=== PATIENT | female | born 1990 | race African-American/Black ===

== ENCOUNTER 2017-10-17 23:03 | Emergency (ER) | payer MEDICAID ==
[2017-10-18] MEDS ORDERED: MORPHINE SULFATE 10 MG/ML INJ IV ONE ×2 (00:41→01:40)
--- NOTE | 2017-10-18 00:46 | ER Document Report ---
ED GI/ - General Chief Complaint: Urinary Frequency Stated Complaint: RIGHT FLANK PAIN Time Seen by Provider: 10/18/17 00:37 Notes: The patient is a 27-year-old female, past medical history cholecystectomy, presents with 2 days of right lower pelvic pain and mild dysuria. She says it is worse when she walks and is constantly there. She was having right flank pain yesterday, but the pain is now lower in her abdomen. She also had subjective fevers at home and took Tylenol just prior to arrival. She denies nausea, vomiting, vaginal discharge, vaginal bleeding, hematuria, fevers, diarrhea or constipation. TRAVEL OUTSIDE OF THE [place] IN LAST 30 DAYS: No - Related Data Allergies/Adverse Reactions: sulfamethoxazole [From Bactrim] Adverse Reaction (Verified 10/17/17 23:05) trimethoprim [From Bactrim] Adverse Reaction (Verified 10/17/17 23:05) Past Medical History - General Information source: Patient - Social History Smoking Status: Unknown if Ever Smoked Family History: Reviewed & Not Pertinent Review of Systems - Review of Systems Notes: REVIEW OF SYSTEMS: CONSTITUTIONAL: +fevers, -chills EENT: -eye pain, -difficulty swallowing, -nasal congestion CARDIOVASCULAR: -chest pain, -syncope. RESPIRATORY: -cough, -SOB GASTROINTESTINAL: +RLQ abdominal pain, -nausea, -vomiting, -diarrhea GENITOURINARY: +dysuria, +hematuria MUSCULOSKELETAL: +right flank pain, -neck pain SKIN: -rash or skin lesions. HEMATOLOGIC: -easy bruising or bleeding. LYMPHATIC: -swollen, enlarged glands. NEUROLOGICAL: -altered mental status or loss of consciousness, -headache, - neurologic symptoms PSYCHIATRIC: -anxiety, -depression. ALL OTHER SYSTEMS REVIEWED AND NEGATIVE. Physical Exam - Vital signs Vitals: Temp Pulse Resp BP Pulse Ox 98.9 F 88 20 145/97 H 98 10/17/17 23:32 10/17/17 23:32 10/17/17 23:32 10/17/17 23:32 10/17/17 23:32 - Notes Notes: PHYSICAL EXAMINATION: GENERAL: Uncomfortable. HEAD: Atraumatic, normocephalic. EYES: Pupils equal round and reactive to light, extraocular movements intact, sclera anicteric, conjunctiva are normal. ENT: nares patent, oropharynx clear without exudates. Moist mucous membranes. NECK: Normal range of motion, supple without lymphadenopathy LUNGS: Breath sounds clear to auscultation bilaterally and equal. No wheezes rales or rhonchi. HEART: Regular rate and rhythm without murmurs ABDOMEN: Soft, moderate right lower abdominal tenderness, normoactive bowel sounds. No guarding, no rebound. No masses appreciated. EXTREMITIES: Normal range of motion, no pitting or edema. No cyanosis. NEUROLOGICAL: Cranial nerves grossly intact. Normal speech, normal gait. Normal sensory and motor exams. PSYCH: Normal mood, normal affect. SKIN: Warm, Dry, normal turgor, no rashes or lesions noted. Course - Re-evaluation Re-evalutation: Patient with right lower abdominal and pelvic pain. Ultrasound shows normal ovaries and a normal appendix. CT abdomen pelvis obtained due to the hematuria and this showed a 4 mm stone on the right side. First urinalysis was contaminated with evidence by squamous cells. However after she was taught how the obtain a proper clean-catch, the second urinalysis did show 152 WBCs and positive nitrites. She does have a leukocytosis and subjective fevers at home. No urology workers compensation coordinator to discuss transfer and patient prefers [facility]. 10/18/17 04:20 Placed call to [facility] Transfer Center to discuss transfer. 10/18/17 04:38 Spoke to Misty Cortes (Urology [employer]) and she has accepted the patient to [facility] under Dr. Khan's service. - Vital Signs Vital signs: Temp Pulse Resp BP Pulse Ox 98.9 F 88 20 145/97 H 98 10/17/17 23:32 10/17/17 23:32 10/17/17 23:32 10/17/17 23:32 10/17/17 23:32 - Laboratory Result Diagrams: 10/18/17 01:00 10/18/17 02:38 Laboratory results interpreted by me: 10/17/17 10/18/17 10/18/17 23:33 01:00 02:59 WBC 13.2 H Hgb 11.8 L Hct 35.7 L RDW 16.6 H Absolute Neutrophils 8.9 H Urine Protein 100 H 100 H Urine Ketones TRACE H Urine Blood LARGE H LARGE H Urine Nitrite POSITIVE H POSITIVE H Urine Urobilinogen 2.0 H 4.0 H Urine Ascorbic Acid 40 H 40 H - Diagnostic Test Radiology reviewed: Image reviewed, Reports reviewed Radiology results interpreted by me: CT A/P: 1. Mild right hydronephrosis and hydroureter to the level of a 4 mm right mid to distal ureteral stone at the pelvic inlet. 2. Small nonobstructing bilateral renal stones. Discharge - Discharge Clinical Impression: Kidney stone on right side UTI (urinary tract infection) Qualifiers: Urinary tract infection type: site unspecified Hematuria presence: with hematuria Qualified Code(s): N39.0 - Urinary tract infection, site not specified Condition: Stable Disposition: [facility]
[2017-10-18 01:08] LABS: APPEARANCE,URINE CLOUDY; BILIRUBIN,URINE NEGATIVE (NEGATIVE); COLOR,URINE RED; GLUCOSE, URINE NEGATIVE (NEGATIVE); KETONES,URINE TRACE mg/dL (NEGATIVE); LEUKOCYTE ESTERASE,URINE NEGATIVE (NEGATIVE); NITRITE,URINE POSITIVE (NEGATIVE); PROTEIN,URINE 100 mg/dL (NEGATIVE); URINE SPECIFIC GRAVITY 1.032
[2017-10-18 01:13] LABS: ABSOLUTE BASOPHILS # (AUTO) 0.1 10^3/uL (0.0-0.2); ABSOLUTE EOSINOPHILS # (AUTO) 0.2 10^3/uL (0.0-0.6); ABSOLUTE LYMPHOCYTES (AUTO) 3.2 10^3/uL (0.5-4.7); ABSOLUTE MONOCYTES (AUTO) 0.7 10^3/uL (0.1-1.4); ABSOLUTE NEUT (AUTO) 8.9 10^3/uL (1.7-8.2); BASOPHILS % (AUTO) 0.9 % (0-2); EOSINOPHILS % (AUTO) 1.4 % (0-6); HEMATOCRIT 35.7 % (36.0-47.0); HEMOGLOBIN 11.8 g/dL (12.0-15.5); LYMPHOCYTES % (AUTO) 24.2 % (13-45); MEAN CORPUSCULAR HEMOGLOBIN 27.8 pg (27.0-33.4); MEAN CORPUSCULAR VOLUME 84 fl (80-97); MONOCYTES % (AUTO) 5.6 % (3-13); PLATELET COUNT 293 10^3/uL (150-450); RED BLOOD COUNT 4.24 10^6/uL (3.72-5.28); RED CELL DISTRIBUTION WIDTH 16.6 % (11.5-14.0); SEGMENTED NEUTROPHILS % (AUTO) 67.9 % (42-78); TOTAL CELLS COUNTED % (AUTO) 100 %; WHITE BLOOD COUNT 13.2 10^3/uL (4.0-10.5)
[2017-10-18] MEDS ORDERED: FLUCONAZOLE 100 MG TABLET PO ONE (01:13)
[2017-10-18] MEDS ORDERED: CEPHALEXIN 500 MG CAPSULE PO ONE (01:20)
--- NOTE | 2017-10-18 01:51 | RADIOLOGY REPORT (SQ) ---
EXAM DESCRIPTION: CLINICAL HISTORY: 27 years, 1990, right pelvic pain, torsion? appendicitis? COMPARISON: None TECHNIQUE: Utilizing a curved array transducer, real-time ultrasound evaluation of the female pelvis was performed. Color Doppler imaging was used to assess vascular flow. FINDINGS: The uterus is normal in size and morphology measuring 9.2 x 5.8 x 6.4 cm. There are no abnormal uterine masses. The endometrial stripe measure 8.2 mm. The cervix is grossly normal in appearance. The right ovary measures 2.1 x 1.4 x 2.0 cm. There are no dominant right ovarian masses or complex lesions. There is intact vascular flow to the right ovary. The left ovary measures 2.1 x 1.8 x 3.2 cm. There are no dominant left ovarian masses or complex lesions. There is intact vascular flow to the left ovary. Limited images of the urinary bladder demonstrate no gross abnormalities. Limited evaluation of the right lower quadrant demonstrates no gross abnormalities. The appendix is well-visualized. There are no fluid collections or masses. IMPRESSION: 1. Unremarkable uterus and bilateral ovaries without evidence of torsion. 2. Nonvisualization of the appendix.
[2017-10-18] MEDS ORDERED: KETOROLAC TROMETHAMINE INJ/PF 30 MG/1 ML SDV IV ONE (02:01)
--- NOTE | 2017-10-18 02:45 | RADIOLOGY REPORT (SQ) ---
CT abdomen and pelvis without contrast on 10/18/2017 at 2:23 AM CLINICAL INDICATION: Right-sided back pain, hematuria TECHNIQUE: Multiple axial images are obtained throughout the abdomen and pelvis without the administration of contrast. This exam was performed according to our departmental dose-optimization program, which includes automated exposure control, adjustment of the mA and/or kV according to patient size and/or use of iterative reconstruction technique. Total DLP is 718.9 mGy*cm. COMPARISON: None FINDINGS: Abdomen: The lung bases are clear. The patient is status post cholecystectomy. There are small nonobstructing bilateral renal stones. There is mild right hydronephrosis and hydroureter to the level of a 4 mm right mid to distal ureteral stone at the pelvic inlet. There are no other ureteral stones. The unenhanced solid abdominal organs are otherwise unremarkable. There is no abdominal adenopathy. There is no free fluid or free air within the abdomen. The abdominal portion of the GI tract is unremarkable. Pelvis: Trace free fluid in the pelvis is likely physiologic. Pelvic organs appear unremarkable by CT. There is no pelvic adenopathy. The pelvic portion of the GI tract including the appendix is unremarkable. No bony abnormality is noted. IMPRESSION: 1. Mild right hydronephrosis and hydroureter to the level of a 4 mm right mid to distal ureteral stone at the pelvic inlet. 2. Small nonobstructing bilateral renal stones.
[2017-10-18 03:26] LABS: ALANINE AMINOTRANSFERASE 19 U/L (9-52); ALBUMIN 4.4 g/dL (3.5-5.0); ALKALINE PHOSPHATASE 60 U/L (38-126); ANION GAP 16 (5-19); ASPARTATE AMINO TRANSFERASE 26 U/L (14-36); BILIRUBIN,DIRECT 0.1 mg/dL (0.0-0.4); BILIRUBIN,TOTAL 0.3 mg/dL (0.2-1.3); BLOOD UREA NITROGEN 14 mg/dL (7-20); CALCIUM 8.8 mg/dL (8.4-10.2); CARBON DIOXIDE 23 mmol/L (22-30); CHLORIDE 105 mmol/L (98-107); GLUCOSE 108 mg/dL (75-110); POTASSIUM 3.7 mmol/L (3.6-5.0); SODIUM 143.9 mmol/L (137-145); TOTAL PROTEIN 7.9 g/dL (6.3-8.2)
[2017-10-18 04:08] LABS: APPEARANCE,URINE CLOUDY; BILIRUBIN,URINE NEGATIVE (NEGATIVE); COLOR,URINE AMBER; GLUCOSE, URINE NEGATIVE (NEGATIVE); KETONES,URINE NEGATIVE (NEGATIVE); LEUKOCYTE ESTERASE,URINE NEGATIVE (NEGATIVE); NITRITE,URINE POSITIVE (NEGATIVE); PROTEIN,URINE 100 mg/dL (NEGATIVE)
[2017-10-18] MEDS ORDERED: HYDROMORPHONE HCL INJ/PF 2 MG/ML AMPULE IV ONE ×2 (04:18→06:03)
[2017-10-18] MEDS: CEFTRIAXONE INJ 1000 MG VIAL IV SCH ×2 (04:48→04:50)
[2017-10-18] MEDS ORDERED: HYDROMORPHONE HCL INJ/PF 2 MG/ML AMPULE ONE (06:00)
[2017-10-18] MEDS ORDERED: HYDROMORPHONE HCL INJ/PF 2 MG/ML AMPULE IV PRN (06:07)
--- NOTE | 2017-10-18 07:19 | ER Document Report ---
Doctor's Note Notes: 10/18/17 07:19 Patient still having pain. Verbal order given for repeat dose of Dilaudid prior to transfer. Patient remained stable for transfer at this time. Please see previous physician's notes for further details.
[2017-10-18 08:09] VITALS: BP 154/103
== END 2017-10-18 08:13 | disposition short-term general hospital (02) ==
LOC: ER 23:03
DX: N20.0 Calculus of kidney (principal); N39.0 Urinary tract infection, site not specified; R10.2 Pelvic and perineal pain; Z90.49 Acquired absence of other specified parts of digestive tract; Z88.3 Allergy status to other anti-infective agents
CPT/HCPCS: 96376; 99285; 96375; 96365; 36415; 87086; 85025; 81025; 80053; 81001; 76856; 93976; 76380; J1885; J2270; J1170; J0696; J3490

== ENCOUNTER 2017-11-12 09:57 | Emergency (ER) | payer MEDICAID ==
[2017-11-12] MEDS ORDERED: KETOROLAC TROMETHAMINE 60 MG/2 ML SDV IM ONE (10:58)
--- NOTE | 2017-11-12 10:59 | ER Document Report ---
ED Medical Screen (RME) - General Chief Complaint: Abdominal Pain Stated Complaint: STOMACH PAIN Time Seen by Provider: 11/12/17 10:57 Notes: 27 years old female presents today with right upper quadrant pain since early this morning 1:00. Sharp, status post cholecystectomy. Associated with nausea no vomiting denies any diarrhea or constipation. She was diagnosed with kidney stones recently and had a stent. Which was removed recently. No fever chills or other constitutional symptoms TRAVEL OUTSIDE OF THE [place] IN LAST 30 DAYS: No - Related Data Allergies/Adverse Reactions: sulfamethoxazole [From Bactrim] Adverse Reaction (Verified 11/12/17 10:44) trimethoprim [From Bactrim] Adverse Reaction (Verified 11/12/17 10:44) Past Medical History - Social History Chew tobacco use (# tins/day): No Frequency of alcohol use: None Drug Abuse: None Renal/ Medical History: Reports: Hx Kidney Stones. Denies: Hx Peritoneal Dialysis Past Surgical History: Reports: Hx Cholecystectomy, Hx Kidney (Renal Surgery) - stent Physical Exam - Vital signs Vitals: Temp Pulse Resp BP Pulse Ox 99.4 F 75 16 142/79 H 100 11/12/17 10:06 11/12/17 10:06 11/12/17 10:06 11/12/17 10:06 11/12/17 10:06 Course - Vital Signs Vital signs: Temp Pulse Resp BP Pulse Ox 99.4 F 75 16 142/79 H 100 11/12/17 10:06 11/12/17 10:06 11/12/17 10:06 11/12/17 10:06 11/12/17 10:06
[2017-11-12 11:34] LABS: ABSOLUTE EOSINOPHILS # (AUTO) 0.2 10^3/uL (0.0-0.6); ABSOLUTE LYMPHOCYTES (AUTO) 1.9 10^3/uL (0.5-4.7); ABSOLUTE MONOCYTES (AUTO) 0.5 10^3/uL (0.1-1.4); ABSOLUTE NEUT (AUTO) 5.4 10^3/uL (1.7-8.2); BASOPHILS % (AUTO) 0.4 % (0-2); HEMATOCRIT 34.6 % (36.0-47.0); HEMOGLOBIN 11.4 g/dL (12.0-15.5); LYMPHOCYTES % (AUTO) 24.1 % (13-45); MEAN CORPUSCULAR HEMOGLOBIN 27.7 pg (27.0-33.4); MEAN CORPUSCULAR VOLUME 84 fl (80-97); MONOCYTES % (AUTO) 6.4 % (3-13); PLATELET COUNT 253 10^3/uL (150-450); RED BLOOD COUNT 4.14 10^6/uL (3.72-5.28); RED CELL DISTRIBUTION WIDTH 16.2 % (11.5-14.0); SEGMENTED NEUTROPHILS % (AUTO) 67.1 % (42-78); TOTAL CELLS COUNTED % (AUTO) 100 %
[2017-11-12 11:44] LABS: APPEARANCE,URINE CLOUDY; BILIRUBIN,URINE NEGATIVE (NEGATIVE); COLOR,URINE YELLOW; GLUCOSE, URINE NEGATIVE (NEGATIVE); KETONES,URINE NEGATIVE (NEGATIVE); LEUKOCYTE ESTERASE,URINE LARGE (NEGATIVE); NITRITE,URINE NEGATIVE (NEGATIVE); PROTEIN,URINE NEGATIVE (NEGATIVE); URINE SPECIFIC GRAVITY 1.025; UROBILINOGEN,URINE NEGATIVE mg/dL (<2.0)
[2017-11-12 11:53] LABS: ALANINE AMINOTRANSFERASE 18 U/L (9-52); ALBUMIN 4.5 g/dL (3.5-5.0); ALKALINE PHOSPHATASE 65 U/L (38-126); ANION GAP 13 (5-19); ASPARTATE AMINO TRANSFERASE 23 U/L (14-36); BILIRUBIN,DIRECT 0.2 mg/dL (0.0-0.4); BILIRUBIN,TOTAL 0.5 mg/dL (0.2-1.3); BLOOD UREA NITROGEN 14 mg/dL (7-20); CALCIUM 9.1 mg/dL (8.4-10.2); CARBON DIOXIDE 28 mmol/L (22-30); CHLORIDE 104 mmol/L (98-107); GLUCOSE 75 mg/dL (75-110); POTASSIUM 3.5 mmol/L (3.6-5.0); SODIUM 145.2 mmol/L (137-145); TOTAL PROTEIN 7.6 g/dL (6.3-8.2)
--- NOTE | 2017-11-12 11:55 | RADIOLOGY REPORT (SQ) ---
EXAM DESCRIPTION: KUB/ABDOMEN (SINGLE VIEW) COMPLETED DATE/TIME: 11/12/2017 11:27 am REASON FOR STUDY: Abdominal pain COMPARISON: None. NUMBER OF VIEWS: One view. TECHNIQUE: Supine radiographic image of the abdomen acquired. LIMITATIONS: None. FINDINGS: BOWEL GAS PATTERN: Normal bowel gas pattern. No dilated loops. CALCIFICATIONS: No suspicious calcifications. SOFT TISSUES: No gross mass or suggestion of organomegaly. HARDWARE: None in the abdomen. BONES: No acute fracture. No worrisome bone lesions. OTHER: No other significant finding. IMPRESSION: NO RADIOGRAPHIC EVIDENCE FOR ACUTE ABDOMINAL DISEASE. TECHNICAL DOCUMENTATION: JOB ID: [id number] [employer]- All Rights Reserved Reading location - IP/workstation name: [email or web address]
[2017-11-12] MEDS ORDERED: ONDANSETRON 4 MG TAB.RAPDIS PO ONE (12:08)
[2017-11-12] MEDS ORDERED: MORPHINE SULFATE 10 MG/ML INJ IV ONE (12:08)
[2017-11-12] MEDS ORDERED: CEPHALEXIN 500 MG CAPSULE PO ONE (12:11)
--- NOTE | 2017-11-12 12:19 | ER Document Report ---
ED General - General Chief Complaint: Abdominal Pain Stated Complaint: STOMACH PAIN Time Seen by Provider: 11/12/17 10:57 Mode of Arrival: Ambulatory Information source: Patient, [facility] Records Notes: 27-year-old female presents with complaint of right upper quadrant and right flank pain that started 1 day prior to arrival. She describes it as an intermittent dull ache. She denies any aggravating or relieving factors. Patient has history of cholecystectomy. Patient has associated nausea without vomiting. She had a normal bowel movement this morning and denies any black or bloody stools. Patient denies any dysuria, hematuria or vaginal discharge. She denies sick contacts, recent antibiotic use. She denies injury to the area. TRAVEL OUTSIDE OF THE [place] IN LAST 30 DAYS: No - HPI Onset: Yesterday Onset/Duration: Gradual, Persistent, Worse Quality of pain: Achy Severity: Mild Associated symptoms: Nausea. denies: Chest pain, Diarrhea, Fever, Headache, Vomiting, Shortness of breath Exacerbated by: Denies Relieved by: Denies Similar symptoms previously: Yes Recently seen / treated by doctor: No - Related Data Allergies/Adverse Reactions: sulfamethoxazole [From Bactrim] Adverse Reaction (Verified 11/12/17 10:44) trimethoprim [From Bactrim] Adverse Reaction (Verified 11/12/17 10:44) Past Medical History - General Information source: Patient, [facility] Records - Social History Smoking Status: Never Smoker Chew tobacco use (# tins/day): No Frequency of alcohol use: None Drug Abuse: None Lives with: Family Family History: Reviewed & Not Pertinent Patient has suicidal ideation: No Patient has homicidal ideation: No Renal/ Medical History: Reports: Hx Kidney Stones. Denies: Hx Peritoneal Dialysis Past Surgical History: Reports: Hx Cholecystectomy, Hx Kidney (Renal Surgery) - stent Review of Systems - Review of Systems Notes: REVIEW OF SYSTEMS: CONSTITUTIONAL : Denies fever, chills, or sweats. Denies recent illness. Denies weight loss, recent hospitalizations. EENT: Denies visual changes, eye pain. Denies nasal or sinus congestion or discharge. Denies sore throat, oral lesions, difficulty swallowing. CARDIOVASCULAR: Denies chest pain. Denies palpitations. Denies lower extremity edema. RESPIRATORY: Denies cough, cold, or chest congestion. Denies shortness of breath, wheezing. GASTROINTESTINAL: Denies abdominal distention. Denies vomiting, or diarrhea. Denies blood in vomitus, stools, or per rectum. Denies black, tarry stools. Denies constipation. GENITOURINARY: Denies difficulty urinating, painful urination, frequency, blood in urine, or vaginal discharge. MUSCULOSKELETAL: Denies back or neck pain or stiffness. Denies joint pain or swelling. SKIN: Denies rash, lesions or sores. HEMATOLOGIC : Denies easy bruising or bleeding. LYMPHATIC: Denies swollen glands. NEUROLOGICAL: Denies confusion or altered mental status. Denies passing out or loss of consciousness. Denies dizziness or lightheadedness. Denies headache. Denies weakness or paralysis. Denies problems difficulty with ambulation, slurred speech. Denies sensory loss, numbness, or tingling. Denies seizures. PSYCHIATRIC: Denies anxiety or stress. Denies depression, suicidal ideation, or homicidal ideation. Denies visual or auditory hallucinations. Physical Exam - Vital signs Vitals: Temp Pulse Resp BP Pulse Ox 99.4 F 75 16 142/79 H 100 11/12/17 10:06 11/12/17 10:06 11/12/17 10:06 11/12/17 10:06 11/12/17 10:06 Interpretation: Hypertensive. No: Hypoxic, Febrile - Notes Notes: PHYSICAL EXAMINATION: GENERAL: Well-appearing, well-nourished and in no acute distress. HEAD: Atraumatic, normocephalic. EYES: Pupils equal round and reactive to light, extraocular movements intact, conjunctiva are normal. ENT: Nares patent, oropharynx clear without exudates. Moist mucous membranes. NECK: Normal range of motion, supple without lymphadenopathy LUNGS: Breath sounds clear to auscultation bilaterally and equal. No wheezes rales or rhonchi. HEART: Regular rate and rhythm without murmurs ABDOMEN: Soft, nontender, nondistended abdomen. No guarding, no rebound. No masses appreciated. Mild tenderness to palpation of the right upper quadrant. Right CVA tenderness. Female : deferred Musculoskeletal: Normal range of motion, no pitting or edema. No cyanosis. NEUROLOGICAL: Cranial nerves grossly intact. Normal speech, normal gait. Normal sensory, motor exams PSYCH: Normal mood, normal affect. SKIN: Warm, Dry, normal turgor, no rashes or lesions noted. Course - Re-evaluation Re-evalutation: 11/12/17 12:29 Laboratory 11/12/17 11/12/17 11/12/17 10:15 11:08 11:08 WBC 8.0 RBC 4.14 Hgb 11.4 L Hct 34.6 L MCV 84 MCH 27.7 MCHC 33.0 RDW 16.2 H Plt Count 253 Seg Neutrophils % 67.1 Lymphocytes % 24.1 Monocytes % 6.4 Eosinophils % 2.0 Basophils % 0.4 Absolute Neutrophils 5.4 Absolute Lymphocytes 1.9 Absolute Monocytes 0.5 Absolute Eosinophils 0.2 Absolute Basophils 0.0 Sodium 145.2 H Potassium 3.5 L Chloride 104 Carbon Dioxide 28 Anion Gap 13 BUN 14 Creatinine 0.60 Est GFR ( Amer) > 60 Est GFR (Non-Af Amer) > 60 Glucose 75 Calcium 9.1 Total Bilirubin 0.5 Direct Bilirubin 0.2 Neonat Total Bilirubin Not Reportable Neonat Direct Bilirubin Not Reportable Neonat Indirect Bili Not Reportable AST 23 ALT 18 Alkaline Phosphatase 65 Total Protein 7.6 Albumin 4.5 Urine Color YELLOW Urine Appearance CLOUDY Urine pH 6.0 Ur Specific [place] 1.025 Urine Protein NEGATIVE Urine Glucose (UA) NEGATIVE Urine Ketones NEGATIVE Urine Blood NEGATIVE Urine Nitrite NEGATIVE Urine Bilirubin NEGATIVE Urine Urobilinogen NEGATIVE Ur Leukocyte Esterase LARGE H Urine WBC (Auto) 13 Urine RBC (Auto) 3 Urine Bacteria (Auto) 1+ Squamous Epi Cells Auto 80 Urine Mucus (Auto) MANY Urine Ascorbic Acid 40 H Urine HCG, Qual NEGATIVE KUB X-Ray 11/12/17 10:57 IMPRESSION: NO RADIOGRAPHIC EVIDENCE FOR ACUTE ABDOMINAL DISEASE. 27-year-old female presents with 1 day of right upper quadrant and right flank pain. She describes the pain as a dull ache that is associated with nausea but no vomiting. Patient does have a history of kidney stones but states that this does not feel similar. Upon arrival vitals were reviewed. Patient is afebrile , mildly hypertensive and not hypoxic. She does not appear toxic or dehydrated. She is in no acute distress. Previous medical records reviewed. CBC shows no leukocytosis but does show mild anemia. CMP is within normal limits. Urinalysis consistent with urinary tract infection. Patient was given her first dose of Keflex in the department and will be discharged home with Keflex and Zofran. Patient provided the opportunity to ask questions, and express concerns. Discharge instructions discussed. Patient is agreeable with discharge home. Return indications explained and discussed with the patient who displays understanding. Patient encouraged to return to the emergency department immediately with any concerns. 11/12/17 12:31 - Vital Signs Vital signs: Temp Pulse Resp BP Pulse Ox 98.1 F 70 16 130/75 H 100 11/12/17 12:29 11/12/17 12:29 11/12/17 12:29 11/12/17 12:29 11/12/17 12:29 - Laboratory Result Diagrams: 11/12/17 11:08 11/12/17 11:08 Laboratory results interpreted by me: 11/12/17 11/12/17 11/12/17 10:15 11:08 11:08 Hgb 11.4 L Hct 34.6 L RDW 16.2 H Sodium 145.2 H Potassium 3.5 L Ur Leukocyte Esterase LARGE H Urine Ascorbic Acid 40 H - Diagnostic Test Radiology reviewed: Image reviewed, Reports reviewed Discharge - Discharge Clinical Impression: Right flank pain Abdominal pain Qualifiers: Abdominal location: right upper quadrant Qualified Code(s): R10.11 - Right upper quadrant pain UTI (urinary tract infection) Qualifiers: Urinary tract infection type: site unspecified Hematuria presence: without hematuria Qualified Code(s): N39.0 - Urinary tract infection, site not specified Condition: Good Disposition: HOME, SELF-CARE Instructions: Abdominal Pain ([facility]), Nausea or Vomiting, Nonspecific ([facility]), Urinary Tract Infection ([facility]) Additional Instructions: Follow up with your physician tomorrow for further care or return to the ED IMMEDIATELY if symptoms worsen or new concerns occur. If you cannot afford to follow up with your primary care physician a list of low cost clinics have been provided at the end of your discharge papers as well. Please return to the emergency room immediately if you are unable take your antibiotics, develop a fever or persistent vomiting. Prescriptions: Cephalexin Monohydrate [Keflex 500 mg Capsule] 500 mg PO BID 5 Days #10 capsule Ondansetron [Zofran Odt 4 mg Tablet] 1 tab PO Q4H PRN #15 tab.rapdis PRN Reason: For Nausea/Vomiting Forms: Elevated Blood Pressure
[2017-11-12 12:30] VITALS: BP 130/75
== END 2017-11-12 12:30 | disposition home or self-care (01) ==
LOC: ER 09:57
DX: N39.0 Urinary tract infection, site not specified (principal); R10.11 Right upper quadrant pain; R11.0 Nausea; Z90.49 Acquired absence of other specified parts of digestive tract; Z88.3 Allergy status to other anti-infective agents; Z87.442 Personal history of urinary calculi
CPT/HCPCS: 99284; 96372; 96374; 36415; 85025; 81025; 80053; 81001; 74018; J1885; S0119; J2270

== ENCOUNTER 2017-11-13 12:01 | Emergency (ER) | payer MEDICAID ==
[2017-11-13 12:07] VITALS: BP 127/75
[2017-11-13] MEDS ORDERED: MAGNESIUM CITRATE 296 ML BOTTLE PO ONE (13:06)
[2017-11-13] MEDS ORDERED: LACTULOSE SYRUP 20 GM/30 ML UDCUP PO ONE (13:06)
--- NOTE | 2017-11-13 13:10 | ER Document Report ---
ED GI/ - General Chief Complaint: Flank Pain Stated Complaint: FLANK PAIN Time Seen by Provider: 11/13/17 13:04 Mode of Arrival: Ambulatory Information source: Patient Notes: Chief complaint: abdominal pain: History of complain:( obtained from----patient) 27 years old female presents today with persistent pain over the right side of the abdomen. She was seen here yesterday, had complete blood work done. We will discharge home with a diagnosis of UTI. Denies any fever chills or other constitutional symptoms. Onset: As above Duration: As above last few days Severity: Moderate Quality: Crampy Context: Possible constipation Exacerbating factor and relieving factors: REVIEW OF SYSTEMS: CONSTITUTIONAL : Denies fever, chills, or sweats. Denies recent illness. EENT: Denies eye, ear, throat, or mouth pain or symptoms. Denies nasal or sinus congestion or discharge. Denies throat, tongue, or mouth swelling or difficulty swallowing. CARDIOVASCULAR: Denies chest pain. Denies palpitations or racing or irregular heart beat. Denies ankle edema. RESPIRATORY: Denies cough, cold, or chest congestion. Denies shortness of breath, difficulty breathing, or wheezing. GASTROINTESTINAL: Denies distention. Denies nausea, vomiting, or diarrhea. Denies blood in vomitus, stools, or per rectum. Denies black, tarry stools. Denies constipation. GENITOURINARY: Denies difficulty urinating, painful urination, burning, frequency, blood in urine, or discharge. FEMALE GENITOURINARY: Denies vaginal bleeding, heavy or abnormal periods, irregular periods. Denies vaginal discharge or odor. MUSCULOSKELETAL: Denies back or neck pain or stiffness. Denies joint pain or swelling. SKIN: Denies rash, lesions or sores. HEMATOLOGIC : Denies easy bruising or bleeding. LYMPHATIC: Denies swollen, enlarged glands. NEUROLOGICAL: Denies confusion or altered mental status. Denies passing out or loss of consciousness. Denies dizziness or lightheadedness. Denies headache. Denies weakness or paralysis or loss of use of either side. Denies problems with gait or speech. Denies sensory loss, numbness, or tingling. Denies seizures. PSYCHIATRIC: Denies anxiety or stress. Denies depression, suicidal ideation, or homicidal ideation. ALL OTHER SYSTEMS REVIEWED AND NEGATIVE. PHYSICAL EXAMINATION: GENERAL: Well-appearing, well-nourished and in no acute distress. HEAD: Atraumatic, normocephalic. EYES: Pupils equal round and reactive to light, extraocular movements intact, conjunctiva are normal. ENT: Nares patent, oropharynx clear without exudates. Moist mucous membranes. NECK: Normal range of motion, supple without lymphadenopathy LUNGS: Breath sounds clear to auscultation bilaterally and equal. No wheezes rales or rhonchi. HEART: Regular rate and rhythm without murmurs ABDOMEN: Soft, nontender, nondistended abdomen. No guarding, no rebound. No masses appreciated. Female : deferred Musculoskeletal: Normal range of motion, no pitting or edema. No cyanosis. NEUROLOGICAL: Cranial nerves grossly intact. Normal speech, normal gait. Normal sensory, motor exams PSYCH: Normal mood, normal affect. SKIN: Warm, Dry, normal turgor, no rashes or lesions noted. Dictation was performed using [employer] voice recognition software TRAVEL OUTSIDE OF THE [place] IN LAST 30 DAYS: No - HPI Notes: 11/13/17 13:08 Dictated - Related Data Allergies/Adverse Reactions: sulfamethoxazole [From Bactrim] Adverse Reaction (Verified 11/13/17 12:04) trimethoprim [From Bactrim] Adverse Reaction (Verified 11/13/17 12:04) Past Medical History - General Information source: Patient - Social History Smoking Status: Never Smoker Frequency of alcohol use: None Drug Abuse: None Lives with: Family Family History: Reviewed & Not Pertinent Patient has suicidal ideation: No Patient has homicidal ideation: No Renal/ Medical History: Reports: Hx Kidney Stones. Denies: Hx Peritoneal Dialysis Past Surgical History: Reports: Hx Cholecystectomy, Hx Kidney (Renal Surgery) - stent Review of Systems - Review of Systems Notes: Dictated Physical Exam - Vital signs Vitals: Temp Pulse Resp BP Pulse Ox 99.1 F 74 18 127/75 H 100 11/13/17 12:05 11/13/17 12:05 11/13/17 12:05 11/13/17 12:05 11/13/17 12:05 - Notes Notes: Dictated Course - Vital Signs Vital signs: Temp Pulse Resp BP Pulse Ox 99.1 F 74 18 127/75 H 100 11/13/17 12:05 11/13/17 12:05 11/13/17 12:05 11/13/17 12:05 11/13/17 12:05 - Diagnostic Test Radiology reviewed: Image reviewed - KUB which was done yesterday was reviewed which shows large amount of fecal material Discharge - Discharge Clinical Impression: Constipation by delayed colonic transit Abdominal pain Qualifiers: Abdominal location: generalized Qualified Code(s): R10.84 - Generalized abdominal pain Condition: Fair Disposition: HOME, SELF-CARE Instructions: Bulk Laxatives Prescriptions: Ketorolac Tromethamine [Toradol 10 mg Tablet] 10 mg PO Q6HP PRN #14 tablet PRN Reason: Dicyclomine HCl [Bentyl 20 mg Tablet] 20 mg PO QID #20 tablet Lactulose 20 gm PO BID #120 ml
[2017-11-13] MEDS ORDERED: IBUPROFEN 800 MG TABLET ONE (13:14)
[2017-11-13] MEDS ORDERED: IBUPROFEN 800 MG TABLET PO ONE (13:15)
== END 2017-11-13 13:19 | disposition home or self-care (01) ==
LOC: ER 12:01
DX: K59.01 Slow transit constipation (principal); R10.84 Generalized abdominal pain; Z87.442 Personal history of urinary calculi; Z90.49 Acquired absence of other specified parts of digestive tract
CPT/HCPCS: 99283; J3490 ×3